=== PATIENT | male | born 1980 | race Caucasian/White ===

== ENCOUNTER 2018-05-02 10:59 | Emergency (ER) | payer OTHER | END 2018-05-02 12:45 | disposition home or self-care (01) | LOC: FTE 10:59 | DX: J06.9 Acute upper respiratory infection, unspecified (principal) | CPT/HCPCS: 87400; 99283 ==

== ENCOUNTER 2018-08-03 12:20 | Emergency (ER) | payer SELFPAY, OTHER | END 2018-08-03 14:10 | disposition left against medical advice (07) | LOC: FTE 12:20 | DX: Z53.21 Procedure and treatment not carried out due to patient leaving prior to being seen by health care provider (principal) | CPT/HCPCS: 93005 ==

== ENCOUNTER 2018-11-23 19:56 | Emergency (ER) | payer OTHER ==
[2018-11-23] MEDS: IBUPROFEN 800 MG TAB PO (20:59)
[2018-11-23] MEDS: METHYLPREDNISOLONE 125 MG INJ IM (20:59)
== END 2018-11-23 21:25 | disposition home or self-care (01) ==
LOC: FTE 21:25
DX: J06.9 Acute upper respiratory infection, unspecified (principal); J01.90 Acute sinusitis, unspecified; R07.9 Chest pain, unspecified
CPT/HCPCS: 93005; 96372; 99284-25